=== PATIENT | male | born 1995 | race African-American/Black ===

== ENCOUNTER 2020-02-24 14:10 | Emergency (ER) | payer SELFPAY ==
[~2020-02-24] VITALS: Ht 185.4 cm; Wt 68.2 kg
[2020-02-24 14:13] VITALS: BP 131/68; TEMP 97.7
[2020-02-24] MEDS ORDERED: COLACE 100100 MG/CAP PO (14:27)
[2020-02-24] MEDS ORDERED: MAGCITRATE PO (14:27)
[2020-02-24] MEDS ORDERED: SENNA-LAX8.6 MG PO (14:27)
[2020-02-24] MEDS ORDERED: MIRALAX PA17 GM/Dose PO (14:27)
[2020-02-24 14:36] VITALS: PULSE 95
== END 2020-02-24 14:38 | disposition home or self-care (01) ==
LOC: COL.ER 14:10
DX: K59.09 Other constipation (principal); R11.10 Vomiting, unspecified; F17.200 Nicotine dependence, unspecified, uncomplicated

== ENCOUNTER 2022-06-03 21:14 | Emergency (ER) | payer OTHER ==
[~2022-06-03] VITALS: Ht 188 cm; Wt 75.5 kg
[~2022-06-03 21:14] MED LIST: COLACE 100100 MG/CAP PO; MAGCITRATE PO; MIRALAX PA17 GM/Dose PO; SENNA-LAX8.6 MG PO
[2022-06-03 21:17] VITALS: TEMP 98.2
[2022-06-03 22:18] LABS: BASO % 0.6 % (0.0-2.0); EOS # 0.2 K/mm3 (0.0-0.7); EOS % 2.2 % (0.0-4.0); GRAN # 4.8 K/mm3 (1.4-6.5); GRAN % 70.8 % (42.2-75.2); HEMATOCRIT 44.9 % (42.0-52.0); HEMOGLOBIN 15.5 g/dl (13.5-18.0); LYMPH # 1.1 K/mm3 (1.2-3.4); LYMPH % 16.6 % (20.0-51.0); MEAN CELL VOLUME 89 fl (80.0-100.0); MEAN CORPUSCULAR HEMOGLOBIN 31 pg (27-31); MEAN CORPUSCULAR HGB CONC 35 g/dl (33.0-37.0); MEAN PLATELET VOLUME 9.7 fl (7.4-10.4); MONO # 0.7 K/mm3 (0.1-0.6); MONO % 9.5 % (1.7-9.3); PLATELET COUNT 225 K/mm3 (130-400); RED BLOOD COUNT 5.06 M/mm3 (4.20-5.60); REDCELL DISTRIBUTION WIDTH-CV 12.4 % (11.5-14.5)
[2022-06-03 22:33] LABS: ALANINE AMINOTRANSFERASE 29 U/L (0-55); ALBUMIN 4.4 gm/dL (3.5-5.0); ALKALINE PHOSPHATASE 61 U/L (40-150); ANION GAP 11 mmol/L (7-16); AST,SGOT 25 U/L (5-34); BILIRUBIN,TOTAL 0.9 mg/dL (0.2-1.2); BLOOD UREA NITROGEN 14 mg/dL (9-21); CALCIUM 9.4 mg/dL (8.4-10.2); CARBON DIOXIDE 21 mmol/L (22-29); CHLORIDE 106 mmol/L (98-107); GLUCOSE 137 mg/dL (70-99); POTASSIUM 3.2 mmol/L (3.5-4.5); SODIUM 138 mmol/L (136-145); TOTAL PROTEIN 7.4 gm/dL (6.2-8.1)
[2022-06-03 22:42] LABS: TROPONIN-I < 0.010 ng/mL (0.00-0.033)
[2022-06-03] MEDS ORDERED: NAPROXEN 3375 MG/TAB PO (22:42)
[2022-06-03 23:59] VITALS: BP 106/83; PULSE 79
== END 2022-06-04 00:09 | disposition home or self-care (01) ==
LOC: COL.ER 21:14
PROVIDERS: Emergency Medicine
DX: R55 Syncope and collapse (principal); M54.6 Pain in thoracic spine; E87.6 Hypokalemia; R42 Dizziness and giddiness; Z28.311 Partially vaccinated for COVID-19; V49.9XXA Car occupant (driver) (passenger) injured in unspecified traffic accident, initial encounter; Y92.410 Unspecified street and highway as the place of occurrence of the external cause
CPT/HCPCS: J1885; J7030